=== PATIENT | female | born 2005 | race Caucasian/White ===

== ENCOUNTER 2024-03-13 03:45 | Emergency (ER) | payer MEDICAID, SELFPAY ==
[2024-03-13] VITALS (14 sets, daily range): BP systolic 105–158; BP diastolic 68–109; PULSE 80–137; RESP 6–18; O2SAT 94–100; BMI 19.5
--- NOTE | 2024-03-13 04:21 | ED_ITS ---
Documented by User: Eliu Brown DO 03/13/24 05:07 HPI - Alcohol 2 General: Chief Complaint: Alcohol Stated Complaint: MHE Time Seen by Provider: 03/13/24 03:50 History of Present Illness: Patient was brought in by the police department after they stated they received a phone call about someone trying to kill herself by cutting her wrist. When they brought her in she was yelling and screaming and noncooperative. She was put in 4 point restraints. Patient would not cooperate with physical exam. Patient appears to be intoxicated. Patient has a laceration on her left forearm area. At first she said she did not cut it that it opened up on its own. At first she would not tell us her correct name. She does admit to drinking tonight and she does admit to being an IV drug user. The [employer] did write an affidavit that said she did make suicidal statements to them. When the patient finally calm down she did talk with us a little bit and admitted to cutting her wrist but says it was not in a suicide attempt. But would not state why she did it. However she was still adamant about not letting us do anything to her wound chest such as a Band-Aid, Steri-Strips, suturing, she kept saying that she wanted to heal on its own as all of her other wounds have been done. Review of Systems 2 General: Reports: ROS unobtainable due to mental status Physical Exam 2 Const: OTHER: Patient aggressive and belligerent and will cooperate with physical exam. HENMT: COMMON NORMALS: normocephalic, atraumatic, hearing grossly normal bilaterally, external ears normal, Normal external nose present and moist oral mucous membranes HEAD & SCALP: normocephalic and atraumatic NOSE: Normal external nose present EXTERNAL EAR: Yes external ears normal Neck/C-Spine: COMMON NORMALS: no JVD Chest: COMMONS NORMALS: normal inspection of the chest and normal palpation of entire chest wall Resp: COMMON NORMALS: normal respiratory effort, No retractions, No use of accessory muscles and clear to auscultation bilaterally AUSCULTATION: clear to auscultation bilaterally Cardio: COMMON NORMALS: no JVD, regular rhythm, S1 normal heart sound present, S2 normal heart sound present, No gallops present (Cardio), No clicks present (Cardio), No murmurs present (Cardio) and No rub (Cardio); negative for regular rate (Mildly tachycardic) RATE: abnormal rate (Mildly tachycardic) RHYTHM: regular rhythm HEART SOUNDS: S1 normal heart sound present and S2 normal heart sound present GI: COMMON NORMALS: Normal to inspection, nondistended, normoactive bowel sounds present, Soft to palpation, non-tender, No hepatosplenomegaly present and no masses PALPATION: Yes Soft to palpation and Yes No hepatosplenomegaly present Skin: NARRATIVE SKIN EXAM: Linear laceration down to into the subcu fat on the left forearm, bleeding is controlled. Multiple similar scars noted to the same area. Procedures Laceration Laceration 1: Site: upper extremity (Left forearm) Side (If applicable): left Size (cm): 4 Description: linear Depth: simple, single layer Local Anesthetic: lidocaine 1% Amount of anesthesia used (mL): 3 Pre-repair: wound explored and deep structures intact Skin layer closed with: nylon Size (cm): 4-0 Number of sutures: 6 Technique: simple, interrupted Course 2 ED course: Patient will not allow us to perform any type of treatment for her wound on her left forearm that needs some type of closure. Patient keeps saying she wants to let it heal up on its own as she has done her other wounds. Vital Signs: Vital signs: Vital Signs Pulse Rate 102 H 03/14/24 08:31 Respiratory Rate 16 03/14/24 08:31 Blood Pressure 97/61 03/14/24 08:31 Pulse Oximetry 98 03/14/24 08:31 Oxygen Delivery Me thod Room Air 03/13/24 07:04 MDM - Alcohol Medical Decision Making Dr. Plata was consulted on this case. He says since she is intoxicated and has an obvious wound that she lied to us about opening up on its own and she lied to us her name at first we cannot trust her or anything she says about being not suicidal. We also have the [employer] affidavit stating that she said she was suicidal to them. We will place the patient on 96-hour hold, on further discussion with the patient patient did settle down and she did allow us to suture repair of laceration on her left forearm. Medical Records I reviewed the patient's medical records. Lab Data I reviewed the patient's lab results. 03/13/24 04:40 03/13/24 04:40 Laboratory Results WBC 8.67 10^3/uL (4.5-13.0) 03/13/24 04:40 RBC 4.64 10^6/uL (3.85-5.65) 03/13/24 04:40 Hgb 11.20 g/dL (12.4-14.8) L 03/13/24 04:40 Hct 37.4 % (36-47) 03/13/24 04:40 MCV 80.6 fl (85-98) L 03/13/24 04:40 MCH 24.1 pg (27-33) L 03/13/24 04:40 MCHC 29.9 g/dL (30-55) L 03/13/24 04:40 RDW 16.2 % (12.1-15.1) H 03/13/24 04:40 Plt Count 554 10^3/cmm (157-399) H 03/13/24 04:40 MPV 9.2 fL (7.4-10.4) 03/13/24 04:40 Neut % (Auto) 62.1 % 03/13/24 04:40 Lymph % (Auto) 26.9 % 03/13/24 04:40 Bailey % (Auto) 8.0 % 03/13/24 04:40 Eos % (Auto) 2.1 % 03/13/24 04:40 Baso % (Auto) 0.6 % 03/13/24 04:40 Neut # (Auto) 5.39 10^3/uL (1.8-8.0) 03/13/24 04:40 Lymph # (Auto) 2.3 10^3/uL (1.5-6.5) 03/13/24 04:40 Bailey # (Auto) 0.7 10^3/uL (0.2-0.9) 03/13/24 04:40 Eos # (Auto) 0.2 10^3/uL (0.0-0.8) 03/13/24 04:40 Baso # (Auto) 0.1 10^3/uL (0.0-0.1) 03/13/24 04:40 Nucleated RBC % (auto) 0 % 03/13/24 04:40 Nucleated RBCs # 0.0 /100WBC 03/13/24 04:40 Sodium 144 mmol/L (136-145) 03/13/24 04:40 Potassium 3.5 mmol/L (3.5-5.1) 03/13/24 04:40 Chloride 107 mmol/L (98-107) 03/13/24 04:40 Carbon Dioxide 20 mmol/L (22-29) L 03/13/24 04:40 Anion Gap 20.5 (5-19) H 03/13/24 04:40 BUN 15 mg/dL (6-20) 03/13/24 04:40 Creatinine 0.7 mg/dL (0.5-0.9) 03/13/24 04:40 GFR Calculation 106.7 mL/min (90-130) 03/13/24 04:40 Glucose 109 mg/dL (65-115) 03/13/24 04:40 Calculated Osmolality 299 mOsm/kg (285-295) H 03/13/24 04:40 Calcium 8.8 mg/dL (8.5-10.5) 03/13/24 04:40 Total Bilirubin 0.2 mg/dL (0.15-1.2) 03/13/24 04:40 AST 25 U/L (0-32) 03/13/24 04:40 ALT 21 U/L (0-33) 03/13/24 04:40 Alkaline Phosphatase 79 U/L (35-105) 03/13/24 04:40 Total Protein 7.7 g/dL (6.6-8.7) 03/13/24 04:40 Albumin 4.3 g/dL (3.5-5.2) 03/13/24 04:40 Globulin 3.4 g/dL (1.3-4.6) 03/13/24 04:40 HCG, Qual Negative (Negative) 03/13/24 04:40 Urine Color Yellow (Yellow) 03/13/24 11:45 Urine Appearance Cloudy (CLEAR) A 03/13/24 11:45 Urine pH 6.0 (5-7) 03/13/24 11:45 Ur Specific [place] 1.023 (1.005-1.030) 03/13/24 11:45 Urine Protein Trace (Negative) A 03/13/24 11:45 Urine Glucose (UA) Negative (Normal) 03/13/24 11:45 Urine Ketones Negative (Negative) 03/13/24 11:45 Urine Blood 3+ (Negative) A 03/13/24 11:45 Urine Nitrate Negative (Negative) 03/13/24 11:45 Urine Bilirubin Negative (Negative) 03/13/24 11:45 Urine Urobilinogen 1.0 mg/dL (Negative) 03/13/24 11:45 Ur Leukocyte Esterase 1+ (Negative) A 03/13/24 11:45 Urine RBC 3-5 /hpf (0-2) 03/13/24 11:45 Urine WBC 21-50 /hpf (0-5) H 03/13/24 11:45 Ur Squamous Epith Cells 0-5 /hpf (0-5) 03/13/24 11:45 Amorphous Sediment Not Reportable 03/13/24 11:45 Urine Bacteria Exceeds /hpf (NONE) 03/13/24 11:45 Hyaline Casts 3.30 /lpf 03/13/24 11:45 Salicylates < 0.3 mg/dL (3-10) L 03/13/24 04:40 Urine Opiates Screen Negative ng/mL (Negative) 03/13/24 11:45 Acetaminophen < 5.0 ug/mL (10-30) L 03/13/24 04:40 Ur Barbiturates Screen Negative ng/mL (Negative) 03/13/24 11:45 Ur Phencyclidine Scrn Negative ng/mL (Negative) 03/13/24 11:45 Ur Amphetamines Screen Positive ng/mL (Negative) H 03/13/24 11:45 U Benzodiazepines Scrn Positive ng/mL (Negative) H 03/13/24 11:45 Urine Cocaine Screen Negative ng/mL (Negative) 03/13/24 11:45 U Marijuana (THC) Screen Negative ng/mL (Negative) 03/13/24 11:45 Ethyl Alcohol 101 mg/dL (0-10) H 03/13/24 04:40 Influenza Type A Ag Negative (Negative) 03/13/24 06:29 Influenza Type B Ag Negative (Negative) 03/13/24 06:29 RSV Antigen Negative (Negative) 03/13/24 06:29 SARS-CoV-2 Ag (Rapid) negative (Negative) 03/13/24 06:29 Discharge Plan Discharge Patient Disposition: Xfer Psychiatric Hosp Clinical Impression: Suicide attempt Condition: Stable Sign Out Sign Out Data: Patient Sign Out occurred on 03/13/24 at 06:02. Patient's care was discussed, and care was transferred from Eliu Brown DO to Herb Calderon DO. Coding Level of Care Code ED Farm [employer] Representative for Chg Fwd Face to Face: Restrn/Seclusion Events leading up to initiation: Verbalizing threat to self or others, Demonstrating self-destructive behavior (cutting, hitting lou etc.) and Combative/Striking out at staff or others Evaluation of patient's immediate situation: Alert and oriented, No signs of physical distress and No signs of psychological distress Patient reaction since intervention applied: Behaviors/threats have lessened, but still present Need for restraint or seclusion is: Continued Attending notified: Yes Documented by User: Herb Calderon DO 03/14/24 08:52 HPI - Alcohol 2 General: Chief Complaint: Alcohol Stated Complaint: MHE Time Seen by Provider: 03/13/24 03:50 History of Present Illness: Patient was brought in by the police department after they stated they received a phone call about someone trying to kill herself by cutting her wrist. When they brought her in she was yelling and screaming and noncooperative. She was put in 4 point restraints. Patient would not cooperate with physical exam. Patient appears to be intoxicated. Patient has a laceration on her left forearm area. At first she said she did not cut it that it opened up on its own. At first she would not tell us her correct name. She does admit to drinking tonight and she does admit to being an IV drug user. The [employer] did write an affidavit that said she did make suicidal statements to them. When the patient finally calm down she did talk with us a little bit and admitted to cutting her wrist but says it was not in a suicide attempt. But would not state why she did it. However she was still adamant about not letting us do anything to her wound chest such as a Band-Aid, Steri-Strips, suturing, she kept saying that she wanted to heal on its own as all of her other wounds have been done. Course 2 Vital Signs: Vital signs: Vital Signs Pulse Rate 102 H 03/14/24 08:31 Respiratory Rate 16 03/14/24 08:31 Blood Pressure 97/61 03/14/24 08:31 Pulse Oximetry 98 03/14/24 08:31 Oxygen Delivery Me thod Room Air 03/13/24 07:04 MDM - Alcohol Medical Decision Making Dr. Plata was consulted on this case. He says since she is intoxicated and has an obvious wound that she lied to us about opening up on its own and she lied to us her name at first we cannot trust her or anything she says about being not suicidal. We also have the [employer] and [employer] affidavit stating that she said she was suicidal to them. We will place the patient on 96-hour hold, on further discussion with the patient patient did settle down and she did allow us to suture repair of laceration on her left forearm. 03/13/2024 1700 Care assumed at change of shift. Patient has been stable. Had previously been medicated we have continued to try to find placement. Care turned over to Dr. Baird 03/14/2024 851 Care assumed at change of shift. This patient has been accepted at [facility] in [facility]. She is awaiting transport. She remains medically stable. Behaviorally, we have not had to medicate this patient. She has been calm and cooperative. When patient was informed we had found a facility for her ambulance arrived she expressed she did not wish to go discussed with her and offered her Ativan to help relieve the anxiety review that she was on a 96-hour hold. She refused to discuss any further patient transferred. Patient stood and got on the ambulance [facility] voluntarily. Lab Data 03/13/24 04:40 03/13/24 04:40 Laboratory Results WBC 8.67 10^3/uL (4.5-13.0) 03/13/24 04:40 RBC 4.64 10^6/uL (3.85-5.65) 03/13/24 04:40 Hgb 11.20 g/dL (12.4-14.8) L 03/13/24 04:40 Hct 37.4 % (36-47) 03/13/24 04:40 MCV 80.6 fl (85-98) L 03/13/24 04:40 MCH 24.1 pg (27-33) L 03/13/24 04:40 MCHC 29.9 g/dL (30-55) L 03/13/24 04:40 RDW 16.2 % (12.1-15.1) H 03/13/24 04:40 Plt Count 554 10^3/cmm (157-399) H 03/13/24 04:40 MPV 9.2 fL (7.4-10.4) 03/13/24 04:40 Neut % (Auto) 62.1 % 03/13/24 04:40 Lymph % (Auto) 26.9 % 03/13/24 04:40 Bailey % (Auto) 8.0 % 03/13/24 04:40 Eos % (Auto) 2.1 % 03/13/24 04:40 Baso % (Auto) 0.6 % 03/13/24 04:40 Neut # (Auto) 5.39 10^3/uL (1.8-8.0) 03/13/24 04:40 Lymph # (Auto) 2.3 10^3/uL (1.5-6.5) 03/13/24 04:40 Bailey # (Auto) 0.7 10^3/uL (0.2-0.9) 03/13/24 04:40 Eos # (Auto) 0.2 10^3/uL (0.0-0.8) 03/13/24 04:40 Baso # (Auto) 0.1 10^3/uL (0.0-0.1) 03/13/24 04:40 Nucleated RBC % (auto) 0 % 03/13/24 04:40 Nucleated RBCs # 0.0 /100WBC 03/13/24 04:40 Sodium 144 mmol/L (136-145) 03/13/24 04:40 Potassium 3.5 mmol/L (3.5-5.1) 03/13/24 04:40 Chloride 107 mmol/L (98-107) 03/13/24 04:40 Carbon Dioxide 20 mmol/L (22-29) L 03/13/24 04:40 Anion Gap 20.5 (5-19) H 03/13/24 04:40 BUN 15 mg/dL (6-20) 03/13/24 04:40 Creatinine 0.7 mg/dL (0.5-0.9) 03/13/24 04:40 GFR Calculation 106.7 mL/min (90-130) 03/13/24 04:40 Glucose 109 mg/dL (65-115) 03/13/24 04:40 Calculated Osmolality 299 mOsm/kg (285-295) H 03/13/24 04:40 Calcium 8.8 mg/dL (8.5-10.5) 03/13/24 04:40 Total Bilirubin 0.2 mg/dL (0.15-1.2) 03/13/24 04:40 AST 25 U/L (0-32) 03/13/24 04:40 ALT 21 U/L (0-33) 03/13/24 04:40 Alkaline Phosphatase 79 U/L (35-105) 03/13/24 04:40 Total Protein 7.7 g/dL (6.6-8.7) 03/13/24 04:40 Albumin 4.3 g/dL (3.5-5.2) 03/13/24 04:40 Globulin 3.4 g/dL (1.3-4.6) 03/13/24 04:40 HCG, Qual Negative (Negative) 03/13/24 04:40 Urine Color Yellow (Yellow) 03/13/24 11:45 Urine Appearance Cloudy (CLEAR) A 03/13/24 11:45 Urine pH 6.0 (5-7) 03/13/24 11:45 Ur Specific [place] 1.023 (1.005-1.030) 03/13/24 11:45 Urine Protein Trace (Negative) A 03/13/24 11:45 Urine Glucose (UA) Negative (Normal) 03/13/24 11:45 Urine Ketones Negative (Negative) 03/13/24 11:45 Urine Blood 3+ (Negative) A 03/13/24 11:45 Urine Nitrate Negative (Negative) 03/13/24 11:45 Urine Bilirubin Negative (Negative) 03/13/24 11:45 Urine Urobilinogen 1.0 mg/dL (Negative) 03/13/24 11:45 Ur Leukocyte Esterase 1+ (Negative) A 03/13/24 11:45 Urine RBC 3-5 /hpf (0-2) 03/13/24 11:45 Urine WBC 21-50 /hpf (0-5) H 03/13/24 11:45 Ur Squamous Epith Cells 0-5 /hpf (0-5) 03/13/24 11:45 Amorphous Sediment Not Reportable 03/13/24 11:45 Urine Bacteria Exceeds /hpf (NONE) 03/13/24 11:45 Hyaline Casts 3.30 /lpf 03/13/24 11:45 Salicylates < 0.3 mg/dL (3-10) L 03/13/24 04:40 Urine Opiates Screen Negative ng/mL (Negative) 03/13/24 11:45 Acetaminophen < 5.0 ug/mL (10-30) L 03/13/24 04:40 Ur Barbiturates Screen Negative ng/mL (Negative) 03/13/24 11:45 Ur Phencyclidine Scrn Negative ng/mL (Negative) 03/13/24 11:45 Ur Amphetamines Screen Positive ng/mL (Negative) H 03/13/24 11:45 U Benzodiazepines Scrn Positive ng/mL (Negative) H 03/13/24 11:45 Urine Cocaine Screen Negative ng/mL (Negative) 03/13/24 11:45 U Marijuana (THC) Screen Negative ng/mL (Negative) 03/13/24 11:45 Ethyl Alcohol 101 mg/dL (0-10) H 03/13/24 04:40 Influenza Type A Ag Negative (Negative) 03/13/24 06:29 Influenza Type B Ag Negative (Negative) 03/13/24 06:29 RSV Antigen Negative (Negative) 03/13/24 06:29 SARS-CoV-2 Ag (Rapid) negative (Negative) 03/13/24 06:29 Discharge Plan Discharge Patient Disposition: Xfer Psychiatric Hosp Clinical Impression: Suicide attempt Condition: Stable Sign Out Sign Out Data: Patient Sign Out occurred on 03/13/24 at 06:02. Patient's care was discussed, and care was transferred from Eliu Brown DO to Herb Calderon DO. Coding Level of Care Code ED Farm [employer] Representative for Chg Fwd Documented by User: Gerson Baird, DO 03/14/24 03:23 HPI - Alcohol 2 General: Chief Complaint: Alcohol Stated Complaint: MHE Time Seen by Provider: 03/13/24 03:50 History of Present Illness: Patient was brought in by the police department after they stated they received a phone call about someone trying to kill herself by cutting her wrist. When they brought her in she was yelling and screaming and noncooperative. She was put in 4 point restraints. Patient would not cooperate with physical exam. Patient appears to be intoxicated. Patient has a laceration on her left forearm area. At first she said she did not cut it that it opened up on its own. At first she would not tell us her correct name. She does admit to drinking tonight and she does admit to being an IV drug user. The [employer] did write an affidavit that said she did make suicidal statements to them. When the patient finally calm down she did talk with us a little bit and admitted to cutting her wrist but says it was not in a suicide attempt. But would not state why she did it. However she was still adamant about not letting us do anything to her wound chest such as a Band-Aid, Steri-Strips, suturing, she kept saying that she wanted to heal on its own as all of her other wounds have been done. Care assumed at change of shift. Patient has been stable. Had previously been medicated we have continued to try to find placement. Care turned over to Dr. Baird at change of shift Course 2 Vital Signs: Vital signs: Vital Signs Pulse Rate 102 H 03/14/24 08:31 Respiratory Rate 16 03/14/24 08:31 Blood Pressure 97/61 03/14/24 08:31 Pulse Oximetry 98 03/14/24 08:31 Oxygen Delivery Me thod Room Air 03/13/24 07:04 MDM - Alcohol Medical Decision Making Dr. Plata was consulted on this case. He says since she is intoxicated and has an obvious wound that she lied to us about opening up on its own and she lied to us her name at first we cannot trust her or anything she says about being not suicidal. We also have the [employer] affidavit stating that she said she was suicidal to them. We will place the patient on 96-hour hold, on further discussion with the patient patient did settle down and she did allow us to suture repair of laceration on her left forearm. Care assumed at change of shift. This patient has been accepted at [facility]. She is awaiting transport. She remains medically stable. Behaviorally, we have not had to medicate this patient. She has been calm and cooperative. Lab Data 03/13/24 04:40 03/13/24 04:40 Laboratory Results WBC 8.67 10^3/uL (4.5-13.0) 03/13/24 04:40 RBC 4.64 10^6/uL (3.85-5.65) 03/13/24 04:40 Hgb 11.20 g/dL (12.4-14.8) L 03/13/24 04:40 Hct 37.4 % (36-47) 03/13/24 04:40 MCV 80.6 fl (85-98) L 03/13/24 04:40 MCH 24.1 pg (27-33) L 03/13/24 04:40 MCHC 29.9 g/dL (30-55) L 03/13/24 04:40 RDW 16.2 % (12.1-15.1) H 03/13/24 04:40 Plt Count 554 10^3/cmm (157-399) H 03/13/24 04:40 MPV 9.2 fL (7.4-10.4) 03/13/24 04:40 Neut % (Auto) 62.1 % 03/13/24 04:40 Lymph % (Auto) 26.9 % 03/13/24 04:40 Bailey % (Auto) 8.0 % 03/13/24 04:40 Eos % (Auto) 2.1 % 03/13/24 04:40 Baso % (Auto) 0.6 % 03/13/24 04:40 Neut # (Auto) 5.39 10^3/uL (1.8-8.0) 03/13/24 04:40 Lymph # (Auto) 2.3 10^3/uL (1.5-6.5) 03/13/24 04:40 Bailey # (Auto) 0.7 10^3/uL (0.2-0.9) 03/13/24 04:40 Eos # (Auto) 0.2 10^3/uL (0.0-0.8) 03/13/24 04:40 Baso # (Auto) 0.1 10^3/uL (0.0-0.1) 03/13/24 04:40 Nucleated RBC % (auto) 0 % 03/13/24 04:40 Nucleated RBCs # 0.0 /100WBC 03/13/24 04:40 Sodium 144 mmol/L (136-145) 03/13/24 04:40 Potassium 3.5 mmol/L (3.5-5.1) 03/13/24 04:40 Chloride 107 mmol/L (98-107) 03/13/24 04:40 Carbon Dioxide 20 mmol/L (22-29) L 03/13/24 04:40 Anion Gap 20.5 (5-19) H 03/13/24 04:40 BUN 15 mg/dL (6-20) 03/13/24 04:40 Creatinine 0.7 mg/dL (0.5-0.9) 03/13/24 04:40 GFR Calculation 106.7 mL/min (90-130) 03/13/24 04:40 Glucose 109 mg/dL (65-115) 03/13/24 04:40 Calculated Osmolality 299 mOsm/kg (285-295) H 03/13/24 04:40 Calcium 8.8 mg/dL (8.5-10.5) 03/13/24 04:40 Total Bilirubin 0.2 mg/dL (0.15-1.2) 03/13/24 04:40 AST 25 U/L (0-32) 03/13/24 04:40 ALT 21 U/L (0-33) 03/13/24 04:40 Alkaline Phosphatase 79 U/L (35-105) 03/13/24 04:40 Total Protein 7.7 g/dL (6.6-8.7) 03/13/24 04:40 Albumin 4.3 g/dL (3.5-5.2) 03/13/24 04:40 Globulin 3.4 g/dL (1.3-4.6) 03/13/24 04:40 HCG, Qual Negative (Negative) 03/13/24 04:40 Urine Color Yellow (Yellow) 03/13/24 11:45 Urine Appearance Cloudy (CLEAR) A 03/13/24 11:45 Urine pH 6.0 (5-7) 03/13/24 11:45 Ur Specific [place] 1.023 (1.005-1.030) 03/13/24 11:45 Urine Protein Trace (Negative) A 03/13/24 11:45 Urine Glucose (UA) Negative (Normal) 03/13/24 11:45 Urine Ketones Negative (Negative) 03/13/24 11:45 Urine Blood 3+ (Negative) A 03/13/24 11:45 Urine Nitrate Negative (Negative) 03/13/24 11:45 Urine Bilirubin Negative (Negative) 03/13/24 11:45 Urine Urobilinogen 1.0 mg/dL (Negative) 03/13/24 11:45 Ur Leukocyte Esterase 1+ (Negative) A 03/13/24 11:45 Urine RBC 3-5 /hpf (0-2) 03/13/24 11:45 Urine WBC 21-50 /hpf (0-5) H 03/13/24 11:45 Ur Squamous Epith Cells 0-5 /hpf (0-5) 03/13/24 11:45 Amorphous Sediment Not Reportable 03/13/24 11:45 Urine Bacteria Exceeds /hpf (NONE) 03/13/24 11:45 Hyaline Casts 3.30 /lpf 03/13/24 11:45 Salicylates < 0.3 mg/dL (3-10) L 03/13/24 04:40 Urine Opiates Screen Negative ng/mL (Negative) 03/13/24 11:45 Acetaminophen < 5.0 ug/mL (10-30) L 03/13/24 04:40 Ur Barbiturates Screen Negative ng/mL (Negative) 03/13/24 11:45 Ur Phencyclidine Scrn Negative ng/mL (Negative) 03/13/24 11:45 Ur Amphetamines Screen Positive ng/mL (Negative) H 03/13/24 11:45 U Benzodiazepines Scrn Positive ng/mL (Negative) H 03/13/24 11:45 Urine Cocaine Screen Negative ng/mL (Negative) 03/13/24 11:45 U Marijuana (THC) Screen Negative ng/mL (Negative) 03/13/24 11:45 Ethyl Alcohol 101 mg/dL (0-10) H 03/13/24 04:40 Influenza Type A Ag Negative (Negative) 03/13/24 06:29 Influenza Type B Ag Negative (Negative) 03/13/24 06:29 RSV Antigen Negative (Negative) 03/13/24 06:29 SARS-CoV-2 Ag (Rapid) negative (Negative) 03/13/24 06:29 No radiology studies performed this visit Discharge Plan Discharge Patient Disposition: er Psychiatric Hosp Clinical Impression: Suicide attempt Condition: Stable Sign Out Sign Out Data: Patient Sign Out occurred on 03/13/24 at 06:02. Patient's care was discussed, and care was transferred from Eliu Brown DO to Herb Calderon DO. Coding Level of Care Code ED Farm Loan Representative for Andrei Cornejo
--- NOTE | 2024-03-13 04:34 | PC.NURSE ---
Pt brought in by [facility]'s Office in handcuffs. [facility] reports they were called because patient was trying to kill herself by slitting her wrist. Patient was intoxicated when officers arrived. Upon arrival pt was hysterical, spitting, and kicking at staff; pt remained uncooperative despite attempts to deescalate patient. Pt was removed from wheelchair and placed in [address] Brown at bedside. Pt was yelling and spitting at staff. Wrist restraints were removed within first 15 minutes of initiation due to patient calming down and not attempting to assault staff.
[2024-03-13 04:43] LABS: Basophils # 0.1 10^3/uL (0.0-0.1); Basophils % 0.6 %; Eosinophils # 0.2 10^3/uL (0.0-0.8); Eosinophils % 2.1 %; Hematocrit 37.4 % (36-47); Lymphocytes # 2.3 10^3/uL (1.5-6.5); Lymphocytes % 26.9 %; Mean Corpuscular HGB Conc 29.9 g/dL (30-55); Mean Corpuscular Hemoglobin 24.1 pg (27-33); Mean Corpuscular Volume 80.6 fl (85-98); Mean Platelet Volume 9.2 fL (7.4-10.4); Monocytes # 0.7 10^3/uL (0.2-0.9); Neutrophils # 5.39 10^3/uL (1.8-8.0); Neutrophils % 62.1 %; Nucleated Red Blood Cells % 0 %; Platelet Count 554 10^3/cmm (157-399); Red Blood Count 4.64 10^6/uL (3.85-5.65); Red Cell Distribution Width 16.2 % (12.1-15.1); White Blood Count 8.67 10^3/uL (4.5-13.0)
[2024-03-13 04:55] LABS: Alanine Aminotransferase 21 U/L (0-33); Albumin Level 4.3 g/dL (3.5-5.2); Alcohol Level 101 mg/dL (0-10); Alkaline Phosphatase 79 U/L (35-105); Anion Gap 20.5 (5-19); Aspartate Amino Transferase 25 U/L (0-32); Blood Urea Nitrogen 15 mg/dL (6-20); Calcium 8.8 mg/dL (8.5-10.5); Carbon Dioxide 20 mmol/L (22-29); Chloride 107 mmol/L (98-107); Creatinine Clr Calc Pharmacy 91.9692; Globulin 3.4 g/dL (1.3-4.6); Glomerular Filtration Rate 106.7 mL/min (90-130); Glucose 109 mg/dL (65-115); Osmolality Calculated 299 mOsm/kg (285-295); Potassium 3.5 mmol/L (3.5-5.1); Sodium 144 mmol/L (136-145); Total Bilirubin 0.2 mg/dL (0.15-1.2); Total Protein 7.7 g/dL (6.6-8.7)
[2024-03-13 04:56] LABS: Acetaminophen < 5.0 ug/mL (10-30); Salicylate < 0.3 mg/dL (3-10)
--- NOTE | 2024-03-13 04:56 | PC.NURSE ---
Pt. gave a alias of Leilani Albrecht on arrival to the ER. Pt. has been registered under several different names in the past. Pt. gave us her social security number. Since [facility] police brought in the patient, we contacted them to confirm her actual identity. They confirmed that her name is actually Eliceo Lai. After receiving this information , I informed the nurse of her actual name. When she heard this , she also confirmed that it was her actual name. The patient is being placed on a 96 hour hold for psych evaluation. I have spoke with Char Jett, the head of security at the hospital about the proper way to fill out the 96 Hour hold due to the false identity. He has instructed to put her legal name on the form and the follow with her AKA or also known alias.
[2024-03-13] MEDS: lidocaine 1% 10 ML INJ XX (05:09)
--- NOTE | 2024-03-13 05:10 | PC.NURSE ---
Pt allowed MD Brown to stitch arm lac. Pt was cooperative with procedure, pt now in 1 leg restraint. Pt resting in bed.
--- NOTE | 2024-03-13 05:11 | PC.NURSE ---
Dr Bronw gave order to administer ketamine in order for patient to receive stitches. At time of stitches, patient did not require ketamine and was cooperative. This nurse wasted unneeded ketamine with VIPIN Dodson.
--- NOTE | 2024-03-13 05:17 | PC.NURSE ---
96 Hour Involuntary Hold Patient Rights have been read to the patient and a copy of the same has been given to her. [employer] Simran Palmer was present at bedside at the time of presentation of Rights.
[2024-03-13] MEDS: ketamine 100 mg/mL Inj 5 mL IM (05:34)
--- NOTE | 2024-03-13 06:32 | PC.NURSE ---
When dressing out patient to scrubs this nurse witnessed numerous cuts on her right thigh.
--- NOTE | 2024-03-13 06:42 | PC.NURSE ---
Pt calm and cooperative at this time. All restraints removed at 0620. Pt educated that if she is threat to herself or others then restraints would be put back on. Pt verbalized understanding.
[2024-03-13 07:04] LABS: SARS Covid-2 Antigen negative (Negative)
[2024-03-13 07:05] LABS: Influenza A by IFA Negative (Negative)
[2024-03-13 07:06] LABS: Influenza B by IFA Negative (Negative)
[2024-03-13 07:09] LABS: RSV Transfer Patient (ED) Negative (Negative)
[2024-03-13 07:32] LABS: HCG, Serum Qual Negative (Negative)
[2024-03-13] MEDS: sodium chloride 0.9% 1,000 ML 999 ML IV ×2 (08:46→10:30)
[2024-03-13 12:02] LABS: Charge for UA Resulting for Rev
[2024-03-13 12:07] LABS: Bilirubin Urine Negative (Negative); Blood Urine 3+ (Negative); Glucose Urine UA Negative (Normal); Ketones Urine Negative (Negative); Leukocyte Esterase Urine 1+ (Negative); Nitrate Urine Negative (Negative); Protein Urine Trace (Negative); Specific Gravity, Urine 1.023 (1.005-1.030); Urine Appearance Cloudy (CLEAR); Urine Color Yellow (Yellow)
[2024-03-13 12:13] LABS: Amphetamines Screen Urine Positive (Negative); Bacteria Urine EXCEEDS /hpf; Barbiturates Screen Urine Negative (Negative); Benzodiazepines Screen Urine Positive (Negative); Cocaine Screen Urine Negative (Negative); Opiate Screen Urine Negative (Negative); PCP Screen Urine Negative (Negative); Squamous Epithelial Cell Urine 0-5 /hpf (0-5); THC Screen Urine Negative (Negative); WBC Urine 21-50 /hpf (0-5)
[2024-03-13 12:19] LABS: Add Urine Culture? Yes
--- NOTE | 2024-03-13 16:33 | PC.NURSE ---
pt resting in room 9, sitting up, respirations even and unlabored. PSA outside room 9.
--- NOTE | 2024-03-13 17:36 | PC.NURSE ---
Pt resting in room 9, awake eating dinner. PSA outside room 9
[2024-03-14] VITALS: BP 118/68; PULSE 85; RESP 16; O2SAT 97
[2024-03-14 04:00] VITALS: PULSE 82; RESP 14; O2SAT 99
[2024-03-14 08:31] VITALS: BP 97/61; PULSE 102; RESP 16; O2SAT 98
--- NOTE | 2024-03-14 08:45 | PC.NURSE ---
UPON EMS ARRIVAL, PT REFUSING TO LEAVE WITH EMS TO BE TRANSFERRED TO ACCEPTING FACILITY. PT STATES SHE WAS UNAWARE OF TRANSFER. PT TEARFUL IN ROOM WITH THIS NURSE. THIS NURSE EDUCATED PT ON HER [address] ORDER AND HOW SHE CANNOT REFUSE. PT STILL UPSET AND STATES I'VE BEEN HERE FOR 2 DAYS. I SHOULDN'T HAVE TO BE TRANSFERRED. THIS NURSE NOTIFIED DR. CELIS OF PT REFUSAL. DR CELIS WENT INTO ROOM TO EDUCATE PT. VERBAL ORDERS FOR 2MG IM ATIVAN. THIS NURSE WENT TO PULL MEDICATION WHEN DR. CELIS NOTIFIED THIS NURSE THAT PT WILLINGLY GOT ON TO THE EMS COT. ATIVAN WAS STILL OFFERED TO PT, PT REFUSED. PT CONTINUED WITH EMS FOR TRANSFER TO [place].
== END 2024-03-14 08:51 ==
PROVIDERS: Emergency Medicine; Emergency Provider Family Medicine
DX: S51.812A Laceration without foreign body of left forearm, initial encounter (principal); X78.9XXA Intentional self-harm by unspecified sharp object, initial encounter; Z11.52 Encounter for screening for COVID-19
CPT/HCPCS: 12002; 80053; 80306; 80307; 81003; 81015; 84703; 85025; 87077; 87086; 87186; 87426; 87804; 87899; 96360; 96372; 99285; J3490; J7030